=== PATIENT | male | born 1975 | race African-American/Black ===

== ENCOUNTER → 2019-05-01 | Day surgery (SDC) | payer OTHER ==
[~2019-05-01] MED LIST: BRINTELLIX20 MG PO; NORCO 5-325 TA1 EAC1 PO; TELMISARTAN-HC1 EAC1 PO; TESTOSTERO IM
--- NOTE | ~2019-05-01 | OP ---
[facility] [address] [place] [address] OPERATIVE REPORT Name: MARICHUY HADLEY Room: [facility]#: [id number] Admission: 05/01/19 Attend Phys: Andrez Boykin Discharge: Date of : 79 Report #: [id number] THIS REPORT FOR: //name// CC: John Boykin DATE OF SERVICE: 05/01/2019 PREOPERATIVE DIAGNOSIS: Symptomatic cholelithiasis with abnormal ultrasound. POSTOPERATIVE DIAGNOSIS: Symptomatic cholelithiasis with abnormal ultrasound. OPERATION: Laparoscopic cholecystectomy with intraoperative cholangiogram. SURGEON: Andrez Boykin M.D. ANESTHESIA: General. ESTIMATED BLOOD LOSS: Minimal. SPECIMEN: Gallbladder. DESCRIPTION OF PROCEDURE: After informed consent was obtained, the patient was brought to the operating room and placed supine. SCDs were placed and working, preoperative antibiotics were administered, general anesthesia was induced. The abdomen was prepped and draped in the usual sterile fashion. A 10-mm incision was made above the umbilicus. Fascia was incised and a trocar was placed. Pneumoperitoneum was established. Three right upper quadrant 5-mm ports were placed. Gallbladder was grasped at the fundus and retracted cephalad. Infundibulum was grasped and retracted laterally. I dissected out the cystic duct and the cystic artery. I clipped the cystic duct. I made a ductotomy. Cholangiogram catheter was then inserted. Cholangiogram was performed. This demonstrated filling of the cystic duct, common bile duct, common hepatic duct, bifurcation of the hepatics, smooth flow into the duodenum without filling defects. This was normal. The cholangiogram catheter was then removed. Cystic duct was ligated with a clip and a PDS Endoloop. The gallbladder was then taken off the liver bed with electrocautery. It was placed into an Endopouch and removed. Fascia was closed with a xfwitu-gx-rfkht 0 Vicryl. Skin was closed with 4-0 Monocryl. Incisions were sealed with Dermabond. COMPLICATIONS: [place] [address] OPERATIVE REPORT Name: MARICHUY HADLEY Room: [facility]#: [id number] Admission: 05/01/19 Attend Phys: Andrez Boykin Discharge: Date of : 79 Report #: [id number] DISPOSITION: The patient was taken to recovery in satisfactory condition. By: [id number] Boykin MD /joleen
[2019-05-01 08:33] LABS: CALCIUM 9.3 mg/dL (8.5-10.1); CREATININE 1.3 mg/dL (0.6-1.3); POTASSIUM 3.6 mmol/L (3.5-5.1)
--- NOTE | 2019-05-01 14:13 | EKG ---
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: : 1975 Requested By: Andrez Boykin Order Number: [id number] Josh MD: Helder Archer Measurements Intervals [place] Rate: 90 P: 73 NM: 147 QRS: 49 QRSD: 89 T: -64 QT: 366 QTc: 448 Interpretive Statements Sinus rhythm Nonspecific T abnormalities, inferior leads Borderline ST elevation, anterior leads No previous ECG available for comparison Electronically Signed On 05-01-2019 14:13:10 WOOD CRAFTSMAN by Helder Archer [email or web address] <ELECTRONICALLY SIGNED> By: Helder Archer MD, LOCATED WITHIN [facility] 05/01/19 1413 0908 09 Helder Archer MD, FACC /EPI
--- NOTE | 2019-05-08 02:05 | PATH ---
[address] [address] PATHOLOGY RPT PROCEDURE Name: MARICHUY DIALLO Room: [facility] SimeonLeland#: [id number] Admission: 05/01/19 Date of : 79 Discharge: Report #: [id number] Path Case #: [id number] [facility] Accession Number: [id number] . 01 Material submitted: . gallbladder - GALLBLADDER . 01 Clinical history: . Calculus of gallbladder. . 02 Diagnosis: Gallbladder, "gallbladder, cholecystectomy": - Chronic cholecystitis with cholelithiasis. - An enlarged lymph node measuring almost 2.0 cm in greatest dimension. (See comment) . (SHA:mmamelia; 05/02/2019) [facility] 05/02/2019 1242 Local . 02 Comment: The lymph node will be evaluated by a hematopathologist and an additional report will follow. . (SULTANA:mmamelia; 05/02/2019) . 02 Addendum: . Addendum is issued to relay immunohistochemical stain result and final diagnosis on the lymph node. . Examination of the lymph node shows normal trena architecture with varying sized follicles. . Immunohistochemical stains with appropriate controls show: Block A2: CD20: Highlights the lymphoid cells within germinal centers and mantle zone CD3: Highlights admixed lymphoid cells within interfollicular regions CD10: Highlights B lymphoid cells within germinal centers BCL-6: Highlights B lymphoid cells within germinal centers BCL-2: Highlights B and T lymphoid cells with lack of staining within germinal centers BCL-1: Negative CD23: Highlights follicular dendritic meshworks [place] and lambda DAMIEN: Polytypic . Based on the morphology and immunohistochemical staining pattern, the findings are consistent with benign reactive lymph node. Correlation and clinical [place] [address] PATHOLOGY RPT PROCEDURE Name: MARICHUY DIALLO Room: [facility]#: [id number] Admission: 05/01/19 Date of : 79 Discharge: Report #: [id number] Path Case #: [id number] . (JMQ:valentina; 05/05/2019) . . [facility], [address] [place] [address]. Technical services performed by [facility] at [address] [place] [address], [address], [place] [address]. [facility]/05/05/2019 Addendum Electronically Signed by Camilla Gomez MD ([facility]) . 02 Electronically signed: . Sagar Zhu MD, Pathologist NPI- [id number] . 01 Gross description: . Received in formalin labeled "Marichuy Diallo, gallbladder" is an intact cholecystectomy specimen measuring 13.4 x 3.6 x 3.2 cm. The serosa is pink-valencia and smooth with a pink-valencia possible lymph node adjacent to the cystic neck measuring 2.0 cm in greatest dimension. The hepatic bed margin is inked black. The specimen is opened to reveal valencia-green velvety mucosa. A firm area is identified within the body, measuring 3.0 x 0.8 x 0.5 cm, which is present within the gallbladder wall and does not extend to the mucosal surface. This area is located 5.3 cm from the cystic duct margin and 0.2 cm from the inked hepatic bed margin. The average wall thickness is 0.1 cm. Calculi are present, which are yellow-green and multifaceted, measuring in aggregate 7.5 x 4.5 x 1.3 cm, and ranging from 0.3-1.8 cm in greatest dimension. [employer] Professional sections are submitted as follows: A1-A2 lymph node, serially sectioned, and cystic duct margin A3-A4 firm area submitted entirely A5 asset protection representative fundus ([facility]; 05/01/2019) SYC/C 05/01/2019 1925 Local . 02 Pathologist provided ICD-10: K80.10, R59.9 . 02 CPT . 619606, H95335, R38810, J02255, K62502 Specimen Comment: A courtesy copy of this report has been sent to [phone], [phone] Specimen Comment: [id number] Specimen Comment: Report sent to / DR GARCIA Performed at: [address], [place], [place] [id number] MD Matt Sears MD Phone: [phone] Performed at: 02 [facility] [address] [place], [place] [id number] [facility] [address] [place] [address] PATHOLOGY RPT PROCEDURE Name: MARICHUY DIALLO Room: [facility] SimeonShania.#: [id number] Admission: 05/01/19 Date of : 79 Discharge: Report #: [id number] Path Case #: [id number] [place] Teddy Bhat [place] Phone: [phone]
== END | disposition home or self-care (01) ==
LOC: M.SUR 06:15
PROVIDERS: Surgery
DX: K80.10 Calculus of gallbladder with chronic cholecystitis without obstruction (principal); R59.0 Localized enlarged lymph nodes; R93.2 Abnormal findings on diagnostic imaging of liver and biliary tract; F32.9 Major depressive disorder, single episode, unspecified; Z98.890 Other specified postprocedural states; Z79.899 Other long term (current) drug therapy; Z79.891 Long term (current) use of opiate analgesic

== ENCOUNTER 2020-04-15 11:37 | Emergency (ER) | payer OTHER ==
[~2020-04-15] VITALS: Ht 185.4 cm; Wt 127.0 kg
[2020-04-15] MEDS ORDERED: BLOOD PRESSURE MED (11:43)
[2020-04-15 12:27] LABS: ABSOLUTE LYMPHOCYTES 0.5 thou/uL (0.8-5.3); ABSOLUTE MONOCYTES 0.6 thou/uL (0.0-1.2); ABSOLUTE NEUTROPHILS 4.6 thou/uL (1.6-8.1); BASOPHILS 0.4 %; EOSINOPHILS 0.2 %; HEMATOCRIT 45.2 % (42.0-52.0); HEMOGLOBIN 15.3 gm/dL (14.0-18.0); LYMPHOCYTES 8.9 %; MCH 29.3 pg (26.0-34.0); MCHC 33.8 g/dL (28.0-37.0); MCV 86.7 fL (80.0-100.0); MONOCYTES 9.9 %; MPV 7.3 fl. (7.2-11.1); NUCLEATED RBCS 0 /100WBC; PLATELET COUNT* 232 thou/uL (150-400); POLYS 80.6 %; RBC 5.21 mil/uL (4.50-6.00); RDW-CV 14.6 % (10.5-14.5); WBC 5.8 thou/uL (4.0-11.0)
[2020-04-15 12:37] LABS: CREATININE 1.2 mg/dL (0.6-1.3); POTASSIUM 3.4 mmol/L (3.5-5.1)
[2020-04-15 12:48] LABS: ALBUMIN 3.4 g/dL (3.4-5.0); TOTAL BILIRUBIN 0.5 mg/dL (<0.1-1.0); TOTAL PROTEIN 7.8 g/dL (6.4-8.2)
[2020-04-15] MEDS ORDERED: ZPAK PO (13:27)
[2020-04-15 14:19] VITALS: BP 157/88
--- NOTE | 2020-04-15 17:09 | EKG ---
[place] [address] ELECTROCARDIOGRAM REPORT Name: MARICHUY HADLEY Room: [facility]#: [id number] Admission: 04/15/20 Attend Phys: Discharge: 04/15/20 Date of : 79 Date of Service: 04/15/20 1228 Report #: [id number] THIS REPORT FOR: //name// [facility] ED Test Date: 2020-04-15 Test Time: 12:28:15 Pat Name: MARICHUY HADLEY Department: Room: Gender: Screen Operator: [facility] : 1975 Requested By: Matty Mustafa Order Number: [id number] MD: Helder Archer Measurements Intervals [place] Rate: 93 P: 73 PA: 147 QRS: 43 QRSD: 88 T: -25 QT: 354 QTc: 441 Interpretive Statements Sinus rhythm Probable left atrial enlargement Borderline low voltage, extremity leads Nonspecific T abnormalities, inferior leads ST elev, probable normal early repol pattern Compared to ECG 05/01/2019 09:08:05 No significant changes Electronically Signed On 04-15-2020 17:09:42 IT SERVICE CONTINUITY SUPERVISOR by Helder Archer [email or web address] <ELECTRONICALLY SIGNED> By: Helder Archer MD, FAC 04/15/20 1709 1228 1228 Helder Archer MD, [facility] /EPI
== END 2020-04-15 14:19 | disposition home or self-care (01) ==
LOC: M.ERS 11:37
PROVIDERS: Emergency Medicine Emergency Medical Services
DX: U07.1 COVID-19 (principal); J18.9 Pneumonia, unspecified organism